=== PATIENT | male | born 1995 | race Caucasian/White ===

== ENCOUNTER 2017-04-11 11:21 | Emergency (ER) | END 2017-04-11 14:36 | disposition home or self-care (01) ==

== ENCOUNTER 2018-02-27 06:51 | Emergency (ER) | payer OTHER ==
[~2018-02-27] VITALS: Ht 167.6 cm; Wt 65.0 kg
[~2018-02-27 06:51] MED LIST: ALBU18HF INHALATION; CETI10CA PO; FLUT9.9S NASAL; IBUP-1542 PO; PRED20TA PO
[2018-02-27 06:52] VITALS: Ht 167.6 cm; Wt 65.0 kg
[2018-02-27] MEDS ORDERED: ONDANSETRON (ODT) 4 MG TAB ODT STA (06:56)
[2018-02-27] MEDS ORDERED: TETRACAINE 0.5% 4 ML OPH ONE (07:02)
[2018-02-27] MEDS ORDERED: FLUORESCEIN STRIP ONE (07:03)
[2018-02-27] MEDS ORDERED: ONDANSETRON 4 MG INJ IV STA (07:14)
[2018-02-27] MEDS ORDERED: FLUORESCEIN STRIP BOTH EYES ONE (07:30)
[2018-02-27] MEDS ORDERED: TETRACAINE 0.5% 4 ML OPH BOTH EYES ONE (07:30)
[2018-02-27] MEDS ORDERED: HYDR-4011 PO (07:54)
[2018-02-27] MEDS ORDERED: ONDA4TAB14 PO (07:54)
[2018-02-27] MEDS ORDERED: HYDROCODONE/APAP (10/325) TAB PO ONE (08:00)
[2018-02-27] MEDS ORDERED: METOCLOPRAMIDE 10 MG INJ ONE (08:05)
[2018-02-27] MEDS ORDERED: LORAZEPAM 2 MG INJ ONE (08:05)
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
[2018-02-27 08:24] VITALS: BP 129/71; PULSE 78; RESP 16
[2018-02-27] MEDS ORDERED: METOCLOPRAMIDE 10 MG INJ IV ONE (08:30)
[2018-02-27] MEDS ORDERED: LORAZEPAM 2 MG INJ IV ONE (08:30)
== END 2018-02-27 08:28 | disposition home or self-care (01) ==
LOC: E/R 06:51
DX: S06.0X0A Concussion without loss of consciousness, initial encounter (principal); S05.01XA Injury of conjunctiva and corneal abrasion without foreign body, right eye, initial encounter; S05.02XA Injury of conjunctiva and corneal abrasion without foreign body, left eye, initial encounter; R11.10 Vomiting, unspecified; R40.2142 Coma scale, eyes open, spontaneous, at arrival to emergency department; R40.2252 Coma scale, best verbal response, oriented, at arrival to emergency department; R40.2362 Coma scale, best motor response, obeys commands, at arrival to emergency department; Y04.8XXA Assault by other bodily force, initial encounter
CPT/HCPCS: 70450; 96374; 96375; J2060; J2405; J2765; Z7502; Z7610